=== PATIENT | male | born 1995 | race African-American/Black ===

== ENCOUNTER 2020-11-06 23:03 | Emergency (ER) | payer MEDICAID ==
[~2020-11-06] VITALS: Ht 172.7 cm; Wt 82.0 kg
[2020-11-06] MEDS ORDERED: HALOPERIDOL LACTATE 5MG/ML VIAL IM STA (23:17)
[2020-11-06] MEDS ORDERED: LORAZEPAM 2MG/ML CPJ IM STA (23:17)
[2020-11-06] MEDS ORDERED: ZIPRASIDONE MESYLATE 20MG/VIAL IM ONE (23:45)
[2020-11-07 00:39] LABS: BASOPHILS % 0.4 % (0.0-2.0); EOSINOPHILS % 0.6 % (0.0-5.0); HEMATOCRIT. 40.3 % (42.0-52.0); HEMOGLOBIN. 13.6 g/dL (14.0-18.0); LYMPHOCYTES % 20.8 % (20.0-50.0); MEAN CORPUSCULAR VOLUME 85.9 fL (80.0-94.0); MEAN PLATELET VOLUME 7.2 fl (7.4-10.4); MONOCYTES % 5.1 % (2.0-8.0); NEUTROPHILS % 73.1 % (40.0-76.0); PLATELET 316 x1000/uL (130-400); RED CELL DISTRIBUTION WIDTH 13.1 % (11.6-14.6)
[2020-11-07 00:45] LABS: CHLORIDE 111 mEq/L (98-107)
[2020-11-07 00:50] LABS: ETHANOL BLOOD < 10 mg/dL
[2020-11-07 00:56] LABS: CREATINE KINASE 617 IU/L (39-308)
[2020-11-07 08:46] VITALS: BP 120/75
[2020-11-07 12:37] LABS: CLARITY URINE CLEAR (CLEAR); COLOR URINE YELLOW (YELLOW); KETONES URINE TRACE (NEGATIVE); LEUKOCYTE ESTERASE URINE NEGATIVE (NEGATIVE); NITRITE URINE NEGATIVE (NEGATIVE); OCCULT BLOOD URINE NEGATIVE (NEGATIVE); PH URINE 5.5 (4.5-8.0); PROTEIN URINE NEGATIVE (NEGATIVE); SPECIFIC GRAVITY URINE 1.028 (1.005-1.030); UROBILINOGEN URINE 0.2 E.U./dL (0.2-1.0)
[2020-11-07 12:51] LABS: CANNABINOID URINE SCREEN PRESUMTIVE POSITIVE (NEGATIVE)
[2020-11-07 12:52] LABS: PHENCYCLIDINE URINE SCREEN NEGATIVE (NEGATIVE)
[2020-11-07 12:54] LABS: *AMPHETAMINES SCREEN URINE PRESUMTIVE POSITIVE (NEGATIVE); *BARBITURATES SCREEN URINE NEGATIVE (NEGATIVE); METHADONE URINE SCREEN NEGATIVE (NEGATIVE)
[2020-11-07 12:55] LABS: *COCAINE SCREEN URINE NEGATIVE (NEGATIVE)
[2020-11-07 12:57] LABS: OPIATES URINE SCREEN NEGATIVE (NEGATIVE)
[2020-11-07 13:04] LABS: *BENZODIAZEPINES SCREEN URINE PRESUMTIVE POSITIVE (NEGATIVE)
[2020-11-07] MEDS ORDERED: DIVALPROEX SODIUM 250MG ER TABLET PO SCH (17:00)
== END 2020-11-07 20:56 | disposition home or self-care (01) ==
LOC: ER 23:03
DX: T43.621A Poisoning by amphetamines, accidental (unintentional), initial encounter (principal); F15.129 Other stimulant abuse with intoxication, unspecified; F23 Brief psychotic disorder; Y92.098 Other place in other non-institutional residence as the place of occurrence of the external cause; F25.0 Schizoaffective disorder, bipolar type
CPT/HCPCS: 36415; 80053; 80305; 80307; 80320; 80329; 81003; 82140; 82550; 83690; 84443; 85025; 96372; 99285; J1630; J2060; J3486; G0480

== ENCOUNTER 2021-05-06 23:20 | Emergency (ER) | payer MEDICAID ==
[~2021-05-06] VITALS: Ht 180.3 cm; Wt 86.0 kg
[2021-05-06 23:28] VITALS: BP 139/71
[2021-05-06] MEDS ORDERED: AZITHROMYCIN 500 MG TABLET PO ONE (23:30)
[2021-05-06] MEDS ORDERED: CEFTRIAXONE SODIUM 250 MG/VIAL IM ONE (23:30)
[2021-05-07] MEDS ORDERED: LIDOCAINE HCL 1% 20ML VIAL (Pyxis) INJ INFIL ONE (00:30)
[2021-05-07] MEDS ORDERED: LIDOCAINE HCL 1% 10 MG/ML 10ML VIAL IJ SCH (00:45)
[2021-05-08 06:10] LABS: HIV SCREEN 4G Non Reactive (Non Reactive)
[2021-05-10 04:07] LABS: NEISSERIA GONORRHOEAE NAA Negative (Negative)
== END 2021-05-07 01:18 | disposition home or self-care (01) ==
LOC: ER 23:20
DX: A53.0 Latent syphilis, unspecified as early or late (principal)
CPT/HCPCS: 86592; 86593; 86780; 87389; 87491; 87591; 96372; 99283; J0696; J3490

== ENCOUNTER 2024-09-08 20:40 | Emergency (ER) | payer MEDICAID ==
[~2024-09-08] VITALS: Ht 180.3 cm; Wt 113.0 kg
[2024-09-09 01:35] LABS: *AMPHETAMINES SCREEN URINE PRESUMPTIVE POSITIVE (NEGATIVE); *BARBITURATES SCREEN URINE NEGATIVE (NEGATIVE); *BENZODIAZEPINES SCREEN URINE NEGATIVE (NEGATIVE); *COCAINE SCREEN URINE NEGATIVE (NEGATIVE); CANNABINOID URINE SCREEN PRESUMPTIVE POSITIVE (NEGATIVE); ECSTASY MDMA SCREEN URINE NEGATIVE (NEGATIVE); METHADONE URINE SCREEN NEGATIVE (NEGATIVE); OPIATES URINE SCREEN NEGATIVE (NEGATIVE); PHENCYCLIDINE URINE SCREEN NEGATIVE (NEGATIVE)
[2024-09-09] MEDS: DIPHENHYDRAMINE 50MG/ML VIAL IM PRN (03:58)
[2024-09-09] MEDS: HALOPERIDOL LACTATE 5MG/ML VIAL IM ONE (03:58)
[2024-09-09] MEDS: OLANZAPINE 10 MG/VIAL IM ONE (04:18)
[2024-09-09 05:02] LABS: BASOPHILS % 1.0 % (0.0-2.0); EOSINOPHILS % 2.1 % (0.0-5.0); HEMATOCRIT. 40.8 % (42.0-52.0); HEMOGLOBIN. 14.0 g/dL (14.0-18.0); LYMPHOCYTES % 44.9 % (20.0-50.0); MEAN PLATELET VOLUME 7.6 fl (7.4-10.4); MONOCYTES % 9.7 % (2.0-8.0); NEUTROPHILS % 42.3 % (40.0-76.0); PLATELET 337 x1000/uL (130-400); RED BLOOD CELL COUNT 4.69 mill/uL (4.7-6.1); RED CELL DISTRIBUTION WIDTH 12.8 % (11.6-14.6)
[2024-09-09] MEDS: KETAMINE HCL 50 MG/ML 10ML IM ONE (05:02)
[2024-09-09 05:15] LABS: CREATININE 1.3 mg/dL (0.6-1.3); ETHANOL BLOOD < 10 mg/dL (<10); UREA NITROGEN BLOOD 12 mg/dL (9-23)
[2024-09-09 06:27] VITALS: O2SAT 99
[2024-09-09] MEDS ORDERED: HYDROXYZINE 25MG TABLET PO PRN (10:00)
[2024-09-09] MEDS: OLANZAPINE 5MG TABLET ODT PO SCH (10:47)
[2024-09-09] MEDS: HALOPERIDOL 5MG TABLET PO ONE (23:54)
[2024-09-09] MEDS: DIVALPROEX SODIUM 250MG ER TABLET PO NR (23:54)
[2024-09-09] MEDS: DIVALPROEX SODIUM 250MG ER TABLET PO ONE (23:55)
[2024-09-09] MEDS: OLANZAPINE 10MG TABLET PO SCH (23:55)
[2024-09-10] MEDS: IBUPROFEN 800MG TABLET PO ONE (00:38)
[2024-09-10] MEDS: OLANZAPINE 10MG TABLET PO SCH (09:00)
[2024-09-10] MEDS: DIVALPROEX SODIUM 250MG ER TABLET PO ONE (09:00)
[2024-09-10] MEDS: HALOPERIDOL 5MG TABLET PO ONE (09:00)
[2024-09-10] MEDS: HALOPERIDOL 5MG TABLET PO SCH (22:00)
[2024-09-10] MEDS: DIVALPROEX SODIUM 250MG ER TABLET PO SCH (22:00)
[2024-09-11 12:00] VITALS: BP 118/64; PULSE 66; RESP 16; TEMP 36.8; O2SAT 100
== END 2024-09-11 14:23 ==
LOC: ER 20:40
DX: R45.851 Suicidal ideations (principal); F15.10 Other stimulant abuse, uncomplicated; F31.9 Bipolar disorder, unspecified; G40.909 Epilepsy, unspecified, not intractable, without status epilepticus; Z20.822 Contact with and (suspected) exposure to COVID-19
CPT/HCPCS: 80305; 80048; 80307; 80329; 80320; 85025; 36415; 93005; 99291; 87426; 96372; 73130; Z7610 ×3; J3490 ×2; J1200; J1630; G0480